=== PATIENT | female | born 1945 | race Caucasian/White ===

== ENCOUNTER 2021-09-07 09:41 | Outpatient (CLI) | payer MEDICARE, SELFPAY ==
--- NOTE | 2021-09-07 09:48 | CDU_ITS ---
Reason For Study: CAROTID STENOSIS Rt. Velocities/BP Lt. Velocities/BP Prox CCA 108.6/17.3 cm/sec. Prox CCA 82.2/13.4 cm/sec. Mid CCA 131.3/28.2 cm/sec. Mid CCA 90.6/17.5 cm/sec. Dist CCA 152.8/43.1 cm/sec. Dist CCA 86.9/12.1 cm/sec. Prox ICA 263.9/60.0 cm/sec. Prox ICA 343.6/22.0 cm/sec. Mid ICA 77.1/16.6 cm/sec. Mid ICA 179.7/15.1 cm/sec. Dist ICA 56.3/10.0 cm/sec. Dist ICA 53.9/10.9 cm/sec. Rt. ICA/CCA = 263.9/131.3=2.0. Lt. ICA/CCA = 343.6/90.6=3.8. Prox ECA 161.5/16.8 cm/sec. Prox ECA 154.4/6.6 cm/sec. Rt. Vert. 58.2/12.8 cm/sec. Lt. Vert. 192.6/34.3 cm/sec. Right Extracranial There is heterogeneous, irregular atherosclerotic plaque noted in the right common carotid artery. There is heterogeneous, irregular atherosclerotic plaque noted in the right internal carotid artery. The atherosclerotic plaque causes acoustic shadowing. There is heterogeneous, irregular atherosclerotic plaque noted in the right external carotid artery. Antegrade flow is noted in the right vertebral artery. Left Extracranial There is heterogeneous, irregular atherosclerotic plaque noted in the left common carotid artery. There is heterogeneous, smooth atherosclerotic plaque noted in the left internal carotid artery. The atherosclerotic plaque causes acoustic shadowing. There is heterogeneous, smooth atherosclerotic plaque noted in the left external carotid artery. Antegrade flow is noted in the left vertebral artery. Procedure Carotid Duplex 97130. This is a Carotid Duplex examination using B-mode, color flow and specral Doppler. The study was technically difficult. Exam performed in department. VL/Carotid Duplex Ultrasound Interpretation Summary Extensive irregular calcific plaque at the proximal right internal carotid norberto ry making visualization very difficult. Greater than 70% stenosis right internal carotid artery Less than 50% stenosis right external carotid artery Irregular calcific plaque at the proximal left internal carotid artery with ext ensive shadowing. Galloping of the left carotid bulb suggesting possible high-grade obstruction o r occlusion. Greater than 70% stenosis left proximal internal carotid artery Less than 50% stenosis left external carotid artery Patent and antegrade right vertebral Greater than 50% stenosis left vertebral Ordering Physician: Alejo Dickey Referring Physician: Luis Carroll Performed By: Sandra Samayoa, TIN, RVT
== END 2021-09-07 23:59 | disposition home or self-care (01) ==
PROVIDERS: PCP Nurse Practitioner Family; Referring Provider Surgery; Visit Provider Surgery
DX: I77.9 Disorder of arteries and arterioles, unspecified (principal); I65.23 Occlusion and stenosis of bilateral carotid arteries
CPT/HCPCS: 93880

== ENCOUNTER 2021-09-09 14:26 | Outpatient (CLI) | payer MEDICARE, SELFPAY ==
[2021-09-09 14:44] LABS: Hematocrit 32.8 % (37-47); Mean Corp Hgb Conc 33.5 g/dL (32-36); Mean Corpuscular Hgb 30.7 pg (27.0-32.0); Mean Corpuscular Volume 91.6 fL (81-99); Mean Platelet Vol. 11.8 fl (6.2-12.0); Platelet Count 231 K/mm3 (150-450); RBC Distribution Width CV 14.6 % (11.6-14.6); RBC Distribution Width SD 49.4 fl (35.1-43.9); Red Blood Count 3.58 M/mm3 (4.2-5.4)
[2021-09-09 15:05] LABS: Anion Gap 7 (5-15); BUN 21 mg/dL (7-18); Calcium,Total 10.1 mg/dL (8.5-10.1); Chloride 105 mmol/L (98-107); Creatinine, Serum 1.05 mg/dL (0.55-1.02); EST Glomerular Filtration Rate 54 mL/min (>60); Est Glom Filt Rate - Afr Amer 66 mL/min (>60); Glucose 144 mg/dL (74-106); Potassium 3.7 mmol/L (3.5-5.1); Sodium Level 139 mmol/L (136-145)
== END 2021-09-09 23:59 | disposition home or self-care (01) ==
PROVIDERS: PCP Nurse Practitioner Family; Referring Provider Surgery; Visit Provider Surgery
DX: Z01.818 Encounter for other preprocedural examination (principal)
CPT/HCPCS: 36415; 80048; 85027

== ENCOUNTER 2021-09-10 15:27 | Observation (INO) | payer MEDICARE, SELFPAY ==
[2021-08-28 08:09] VITALS: BMI 28.1
--- NOTE | 2021-09-07 09:49 | EKG12_ITS ---
Test Reason : PRE OP Blood Pressure : / mmHG Vent. Rate : 075 BPM Atrial Rate : 075 BPM P-R Int : 158 ms QRS Dur : 078 ms QT Int : 388 ms P-R-T Axes : 074 -20 090 degrees QTc Int : 433 ms Sinus rhythm with marked sinus arrhythmia Septal infarct , age undetermined Abnormal ECG Confirmed by MARCOS HYDE, ASHKAN ([id number]), editor dictionary OLAF LOGAN ([id number]) on 09/08/2021 11:16:23 AM Referred By: Alejo Dickey Confirmed By:ASHKAN RODRÍGUEZ MD
--- NOTE | 2021-09-10 08:00 | HP.PCM_ITS ---
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 Is patient in pain?: No Allergies Penicillins Allergy (Verified 09/01/21 13:53) Rash Medications Lantus Solostar U-100 Insulin 30 units SUBCUT BID 09/15/13 [History Confirmed 09/01/21] Omeprazole [Prilosec] 80 mg PO DAILY 09/15/13 [History Confirmed 09/01/21] atorvastatin 80 mg PO QHS 09/15/13 [History Confirmed 09/01/21] lisinopril 40 mg PO DAILY 09/15/13 [History Confirmed 09/01/21] aspirin 81 mg PO DAILY@0800 05/17/14 [History Confirmed 09/01/21] fenofibrate nanocrystallized [Triglide] 160 mg PO DAILY 11/24/17 [History Confirmed 09/01/21] insulin lispro [Humalog KwikPen Insulin] 50 unit SQ TID 11/24/17 [History Confirmed 09/01/21] pregabalin 300 mg PO QHS 08/07/19 [History Confirmed 09/01/21] ondansetron 4 mg PO Q8H PRN PRN #10 tab 08/20/19 [Rx Confirmed 09/01/21] albuterol sulfate 1 inh INHALATION Q6H PRN 04/23/21 [History Confirmed 09/01/21] terazosin 2 mg PO QHS 04/23/21 [History Confirmed 09/01/21] [facility] Medical History (Updated 09/01/21 @ 15:47 by Willow MOHR, PA-C) Atypical chest pain Chronic kidney disease Diabetes Diabetic neuropathy Dietary restriction DRUG SEEKING BEHAVIOR / MALINGERING Gallbladder sludge Gastric reflux High cholesterol History of renal disease Hypertension Injury of back Insulin dependent diabetes mellitus Knee pain Laceration without foreign body, right lower leg, initial encounter Leg cramps Pancreatitis Port-A-Cath in place Problem with dialysis access Smoker Suspected COPD Tobacco use Wears glasses Surgical History History of appendectomy History of cardiac catheterization History of cholecystectomy Family History Grandmother Asthma Mother Breast cancer Hypertension Hypercholesterolemia CVA (cerebral vascular accident) Father Colon cancer Hypertension Hypercholesterolemia Uncle Diabetes Grandfather Heart disease Son Seizures Social History Smoking Status: Current every day smoker tobacco type: cigarettes alcohol intake: never HPI HPI HPI: SRINI JALLOH, is a 52 M who presents to the office today for problem with dialysis access. Patient had right chest catheters placed at [facility] in the summer of last year. He now has a right forearm radiocephalic arteriovenous hemodialysis fistula created on 04/29/21. He has been utilizing the fistula as of July of 2021. Patient states on Tuesday he was turning on his left side laying on the couch and he noted a feeling of wet. He looked at his shirt and noted blood at the catheter site and he went to stand up and the catheter fell to the ground. Patient notes very small amount of tenderness. he stated he presented to the ED that day and was evaluated. No antibiotics were needed and patient was told to follow-up at our office. Patient was told to keep it covered until and drainage stopped. Patient states he has not noted any further drainage since Tuesday night. Patient dialyzes via [facility] kidney center. Dialysis center had sent over a notification noting difficulty with cannulation. Patient notes for a few weeks they have had difficulty accessing the second needle site. He states he has been going 4 times per week to take off extra fluid. He stated last night they had difficulty with the second access site. He went back today and they were unable to place the second needle. He has never had a fistulogram. Patient also notes he is scheduled for open heart surgery on September 14 at [facility]. He stated he has multiple blockages. he states they were not able to complete a heart cath. ROS General General: Yes weight change and fatigue; No appetite, colon cancer, breast cancer or weakness HEENT HEENT: No difficulty swallowing, eye injury, eye surgery, swollen glands or hoarseness Endo Endocrine: Yes diabetes mellitus; No thyroid disease, thyroid cancer, Hair loss, heat intolerance or cold intolerance Skin Skin: No rash or changing moles Breast Breast: No left breast lump, right breast lump, nipple discharge, breast pain, abnormal mammogram, abnormal US or breast enlargement Musc Musculoskeletal: Yes back problems; No arthritis, rheumatoid arthritis, gout or joint pain Cardio Cardiovascular: Yes high blood pressure and heart attack; No murmur, pacemaker, heart disease, atrial fibrillation, heart stent, palpitations, shortness of breat with exertion or chest pain Psych Psychiatric: Yes depression and anxiety; No hearing voices Resp Respiratory: No shortness of breath, No sleep apnea, Yes cough, Yes COPD, No asthma, No emphysema and No wheezing Gastro Gastrointestinal: Yes abdominal pain, Yes nausea or vomiting, Yes diarrhea, Yes constipation, No blood in stool, Yes acid reflux, No hemorrhoids, No ulcers, No gallbladder problem and Yes black,tarry stools Additional Details: History pancreatitis Topher Hematologic: No blood thinners, No blood disorders, No bleeding, Yes anemia and No blood clots Neuro Neurologic: No system reviewed and no additional complaints, except as documented, No as per HPI, No abnormal gait, No abnormal hearing, No abnormal movements, No abnormal speech, No behavioral changes, No burning sensations, No confusion, No convulsions, No disequilibrium, No dizziness, No localized weakness, No frequent falls, No headache(s), No lack of coordination, No loss of vision, No memory loss, No numbness, No other visual disturbances, No radicular pain, No restless legs, No sensory deficit, No syncope, No tingling, No tremor(s), No weakness and No other Exam Const General: cooperative, healthy appearing, comfortable and no acute distress [facility] Head: normal to inspection Eyes General: appearance normal, both eyes and all related structures Neck Neck: normal visual inspection Neck mass: No Chest Other: Right chest- previous catheter site c/d/i. Very small scab noted. No erythema or infection noted. Opening appears completely healed. No drainage noted. Resp Effort & Inspection: normal respiratory effort Auscultation: clear to auscultation bilaterally Cardio Rate: regular rate Rhythm: regular rhythm GI Inspection: normal to inspection and obesity Palpation: soft Auscultation: normal bowel sounds Skin General: no rashes or lesions noted Neuro General: no focal motor deficits and CN's II-XI intact bilaterally Extrem Other: Right forearm AV fistula- good pulse, diminished bruit and thrill mid forearm. Psych Appearance: grossly normal Affect: normal affect Assessment and Plan Assessment and Plan (1) Displacement of vascular dialysis catheter, initial encounter: Status: Acute Plan - Willow MOHR PA-C: Previous catheter site appears to be healed very well Patient may shower He will no longer need to keep the area covered (2) Problem with dialysis access: Status: Acute Qualifiers: Encounter type: initial encounter Qualified Code(s): T82.898A - Other specified complication of vascular prosthetic devices, implants and grafts, initial encounter Plan - Willow MOHR PA-C: Dr. Dickey will plan to perform a right forearm fistulogram. Procedure details, risks and benefits have been explained. He may continue his aspirin for the procedure. Patient is limited on time frame due to open heart surgery. We will attempt in every way to accommodate this procedure prior to the patient having open heart surgery. Patient has had the opportunity to ask and have questions answered. Patient verbally understands and agrees with the plan. Coding Level of Care Code Off vis,est,level 3 Diagnoses Displacement of vascular dialysis catheter, initial encounter T82.42XA Problem with dialysis access T82.898A Encounter type: initial encounter 09/01/21 1554<Electronically signed by Willow MOHR PA-C>Date Willow MOHR PA-C I have re-examined the patient. There are no clinical changes since date of exam.
--- NOTE | 2021-09-10 10:16 | OP.PCM_ITS ---
Problems Associated Problem List Diagnoses (1) PAOD (peripheral arterial occlusive disease): Report of Operation Date of Procedure: 09/10/21 Pre-Operative Diagnosis: Critical ischemia left foot. Claudication symptoms right lower extremity Post-Operative Diagnosis: Multi segmental bilateral extremity peripheral arterial occlusive disease Surgery/Procedure Performed:: Abdominal pelvic bilateral lower extremity arteriogram. Right externally X 6 x 40 mm Powerflex balloon angioplasty Left common iliac and left external iliac 6 x 4 Powerflex balloon angioplasty Left common neck and external iliac 7 x 100 ever flex stenting Left proximal common iliac 6 x 2 conquest angioplasty Description of Surgical Findings:: Timeout and informed consent was obtained. 75-year-old female was taken to the special procedures lab placed upon the table. Throughout the procedure in aliquots she received a total of 3 mg of Versed is intravenous sedation. Bilateral groins were sterilely prepped and draped. Ultrasound was used to identify the right common femoral artery. It was noted to be is small in caliber and very deeply placed secondary to by patient body habitus. Under ultrasound guidance 2% lidocaine was instilled as a local anesthetic and a total of 10 cc was used. Then a micropuncture needle was inserted into the right common femoral artery followed by a cylinder wire and m icropuncture sheath 035 J-wire and a 5 [place] short sheath dilator. Then using a 035 angled Glidewire placed a 5 [place] universal flush catheter into the abdominal aorta. It is of note that the abdominal aorta diffusely small in caliber as I had some effort and required to get the flush catheter to open. Then using Visipaque contrast the rate of 15 cc a second for 10 cc an AP aortogram was obtained. This demonstrated significant calcific disease of the proximal left common iliac with more diffuse disease of the distal left common iliac and of the left mid to distal external iliac. There was also clinically significant disease of the right external iliac. So under ultrasound guidance gained access to the left common femoral artery. This was quite challenging due to the deep placement of the vessel and the diminutive size because of the decreased flow. Used 2% lidocaine again 10 cc was used micropuncture needle micropuncture wire micropuncture sheath an 035 J-wire then placed a 7 [place] sheath on the left. The 6 [place] sheath on the right was exchanged out for a 7 [place] sheath as well. The patient received 7000 units of heparin weightbase. Subsequently based upon ACT measurements later in the procedure she received additional 500 units of heparin. I was able use a 4 [place] glide cath and a Glidewire to get past the quite clinically significant occlusive focal plaque at the proximal left common iliac. I then performed balloon angioplasty of the left common iliac and external iliac with 3 different positionings of a 6 x 40 mm Powerflex balloon. Move the balloon over to the right and balloon angioplasty was performed of the right mid external iliac artery. Subsequent views on the left demonstrated incomplete resolution. Because of the length of disease I elected to place a ever flex stent covering all areas. A 7 x 100 mm ever flex stent was placed on the left and carefully the position to be right at the orifice of the left common iliac covering the disease there but not involving the right common iliac. I felt that I got excellent positioning. Then subsequently reballooned the stented area on the left with the 6 x 4 Powerflex. There is incomplete improvement of the proximal left common axial I placed a 6 x 2 conquest balloon inflated that to 22 vi of pressure. At that point the patient had mild discomfort I elected not to increase the pressure. I then through the flush catheter obtained abdominal views pelvic views bilateral lower extremity runoff views. Throughout the procedure total of 60 cc of contrast was used. Minx devices were deployed in both groins. The right groin was successful. The left groin developed a hematoma that required manual compression. At the completion the patient then received 10 mg of protamine to assist. Both feet appear to be viable although she demonstrated ongoing signs of compromised blood flow secondary to her multisegmental disease. Images demonstrate diffuse calcific narrowing of the abdominal aorta. Moderate proximal bilateral renal artery stenosis. Severe exophytic plaque involving greater 90% stenosis of the proximal left common iliac. 70% stenosis left external iliac artery. 70% stenosis right external iliac artery. Patent bilateral profundofemoral's. Left superficial femoral was patent down to the suprageniculate popliteal where it occludes. The left posterior tibial and peroneal diminutive in size but appear patent down to the distal third of the left leg. The right superficial femoral artery occludes in the proximal lower extremity. The right anterior tibial peers to be the main vessel still refilling of the right lower extremity. Subsequent to the angioplasty and stenting there appears to be improvement in the right external iliac artery and distinct improvement in the left common iliac and external iliac arteries although there is still residual 20 to 30% compression of the stent due to the very calcific plaque in the proximal left common iliac artery. Alejo Dickey M.D., F.A.C.S. Surgeon: Alejo Dickey Type of Anesthesia: IV Sedation and Local
--- NOTE | 2021-09-10 14:48 | ADUL_ITS ---
Reason For Study: R/O Pseudo Left Velocities LABORER ADJUSTABLE STEEL JOIST measures .89 x .83 cm. LABORER ADJUSTABLE STEEL JOIST 150.7 cm/s. CFV is compressible with normal venous flow patterns. No pseudoaneurysm or A-V fistula identified. VL/US Art Duplex Unilat Lower Ext Interpretation Summary Left common femoral artery is visualized and measures approximately 0.89 x 0.83 cm in diameter. Flow is noted within. There is no visualized active bleeding or pseudoaneurysm or fi stula. Left common femoral vein is patent and compressible. Ordering Physician: Alejo Dickey Performed By: Enrico Bean RVT
[2021-09-10 15:27] LABS: Absolute Lymphocyte Count 0.75 X10^3/uL (0.83-4.51); Absolute Neutrophil Count 8.5 X10^3/uL (2.0-7.7); Basophil# 0.02 X10^3/uL; Basophil% 0.2 % (0-1); Hemoglobin 9.2 g/dL (12.0-15.0); Lymphocyte # 0.75 X10^3/ul (0.83-4.51); Lymphocyte % 7.3 % (19-41); Mean Corp Hgb Conc 32.9 g/dL (32-36); Mean Corpuscular Hgb 31.1 pg (27.0-32.0); Mean Corpuscular Volume 94.6 fL (81-99); Monocyte# 0.79 X10^3/uL; Monocyte% 7.7 % (0-10); NRBC Flagged by Analyzer 0 % (0-5); Neutrophil # 8.47 X10^3/uL (2.7-7.7); Platelet Count 211 K/mm3 (150-450); RBC Distribution Width CV 14.7 % (11.6-14.6); RBC Distribution Width SD 50.9 fl (35.1-43.9); Red Blood Count 2.96 M/mm3 (4.2-5.4); White Blood Count 10.2 K/mm3 (4.4-11.0)
--- NOTE | 2021-09-10 15:37 | PN.SURG_ITS ---
Subjective Subjective Called to see the patient because without any pain she became nauseated and was noted to be hypotensive briefly with a systolic pressure of 70. She received initiation of 500 cc of crystalloid. Blood pressure responded. Etiology to the hypotension not clarified. The patient complained of mild nausea which also abated. Objective Data Objective Data Vital Signs: Weight: 154 lb Body Mass Index (BMI) 28.1 Lab / Micro Data Result Diagrams: 09/10/21 15:15 09/10/21 15:15 Labs: Laboratory Results - last 24 hr 09/10/21 15:15: WBC 10.2, RBC 2.96 L, Hgb 9.2 L, Hct 28.0 L, MCV 94.6, MCH 31.1, MCHC 32.9, RDW Std Deviation 50.9 H, RDW Coeff of Anisa 14.7 H, Plt Count 211, MPV 12.0, Immature Gran % (Auto) 0.800, Neut % (Auto) 83.0 H, Lymph % (Auto) 7.3 L, Guthrie % (Auto) 7.7, Eos % (Auto) 1.0, Baso % (Auto) 0.2, Absolute Neuts (auto) 8.5 H, Absolute Lymphs (auto) 0.75 L, Nucleated RBC % 0 Radiography Diagnostic Testing: Radiology Impression Duplex Scan Lower Extremity Artery 09/10/21 14:48 Interpretation Summary Left common femoral artery is visualized and measures approximately 0.89 x 0.83 cm in diameter. Flow is noted within. There is no visualized active bleeding or pseudoaneurysm or fistula. Left common femoral vein is patent and compressible. Ordering Physician: Alejo Dickey Performed By: Enrico Bean RVT Physical Exam Narrative: Post procedure the patient developed a left groin hematoma which had to be held. She had her heparin reversed with a low dose of protamine. She appeared to be stable. On repeat exam there appears to be significant mount of swelling in the left groin area and direct pressure was held. Assessment & Plan Assessment/Plan (1) Vasovagal episode: PLAN: Etiology of the patient's nausea and hypotensive not clear. She had a bowel movement but not completely in line with her hypotension and nausea. She had absolutely no pain. Pressure again was held in the left groin at the site of her previous postprocedural hematoma. She had not had any renewed pain in that area. Duplex imaging of the left groin was obtained showing no active bleeding. The patient lying supine had recovery of her blood pressure. Crystalloids were being infused. She was saying that her nausea had abated. She denied any chest pain. In further discussion with her she had had a myocardial infarction 7 years prior. She states that at that time she had no chest pain either but that she felt unwell and had sweats. She is not complaining of any distress at this time. I plan admission. Will obtain twelve-lead EKG and laboratory including a BMP and CBC and baseline troponin.. As noted the duplex is already been obtained showing no bleeding from the left groin. I will consult the hospitalist for add itional medical assistance. She appears to be stable from a surgical standpoint at this time Alejo Dickey M.D., F.A.C.S.
[2021-09-10 15:43] LABS: Anion Gap 4 (5-15); BUN 20 mg/dL (7-18); BUN/Creat Ratio 20.4 RATIO (10-20); Calcium,Total 8.7 mg/dL (8.5-10.1); Chloride 110 mmol/L (98-107); Creatinine, Serum 0.98 mg/dL (0.55-1.02); EST Glomerular Filtration Rate 59 mL/min (>60); Est Glom Filt Rate - Afr Amer 71 mL/min (>60); Estimated Creatinine Clearance 39.23 ml/min; Glucose 144 mg/dL (74-106); Potassium 3.8 mmol/L (3.5-5.1); Sodium Level 141 mmol/L (136-145); Troponin-I HS 13 pg/mL (3.0-54.0)
[2021-09-10 17:30] VITALS: BP 112/75; PULSE 89; RESP 18; TEMP 36.1; O2SAT 100; BMI 28.1
--- NOTE | 2021-09-10 18:18 | PCM.CONS.GEN ---
Assessment & Plan Assessment/Plan (1) Vasovagal episode: (2) PAOD (peripheral arterial occlusive disease): (3) Anemia: QUALIFIERS: Anemia type: other cause PLAN: 1. Vasovagal syncope Likely multifactorial due to her recent surgery possibly anesthesia and suspect some acute blood loss anemia. Patient's hemoglobin has gone from 11-9.2. Certainly no indication to transfuse at this time may have culminated in her episode today. Additionally patient does also have a carotid stenosis which is another contributing factor. Currently hemodynamically stable. No additional work-up at this time. 2. Anemia Hemoglobin is gone from 11-9.2 Patient does have some ecchymosis Agree with continue to monitor her hemoglobin Transfuse unless hemoglobin drops less than 7 3. Peripheral arterial disease Status post angioplasty today 4. Carotid stenosis Patient will follow up with tertiary facility as outpatient 5. COPD and asthma Continue with bronchodilators and Advair Thank you for the consult. The hospital service will follow along during this patient's hospitalization. HPI Consult Data Date of Consult: 09/10/21 HPI Narrative HPI Narrative: EMILY PATEL, is a 75 F who presents for an angiogram today. Patient was having claudication to her right lower extremity. She underwent a arteriogram abdominal pelvic area and had a balloon angioplasty bilateral lower extremities. After the procedure, patient was nauseated and was hypotensive with a systolic blood pressure in the 70s. Did receive 500 cc of fluids. She was then transferred to the floor for further monitoring in the hospital service was consulted. Currently, the patient feels well and denies any active complaints. [facility], [facility] Medical History Asthma COPD (chronic obstructive pulmonary disease) Hemorrhoids History of heart attack History of stroke Hypertension Rheumatoid arthritis Home Medications acetaminophen 325 mg capsule 325 mg PO Q6H PRN cap 08/03/21 [History Last Taken Unknown] albuterol sulfate 90 mcg/actuation aerosol inhaler 2 puff INHALATION Q4H PRN g 08/03/21 [History Last Taken Unknown] ascorbic acid (vitamin C) 500 mg capsule 1,000 mg PO DAILY cap 08/03/21 [History Last Taken Unknown] aspirin 81 mg tablet,delayed release 81 mg PO DAILY 08/03/21 [History Last Taken 09/10/21] cholecalciferol (vitamin D3) 125 mcg (5,000 unit) capsule 125 mcg PO DAILY 08/03/21 [History Last Taken Unknown] fluticasone 250 mcg-salmeterol 50 mcg/dose blistr powdr for inhalation 1 inh INHALATION Q12H 08/03/21 [History Last Taken Unknown] hydrochlorothiazide 12.5 mg tablet 12.5 mg PO DAILY 08/03/21 [History Last Taken Unknown] lisinopril 10 mg tablet 10 mg PO DAILY 08/03/21 [History Last Taken 09/10/21] metoprolol succinate 25 mg tablet,extended release 24 hr 12.5 mg PO DAILY tab 08/03/21 [History Last Taken 09/10/21] pantoprazole 40 mg tablet,delayed release 40 mg PO DAILY 08/03/21 [History Last Taken Unknown] Allergy/AdvReac Type Severity Reaction Status Date / Time hydromorphone [From Dilaudid] AdvReac unknown Verified 09/09/21 13:34 morphine AdvReac unknown Verified 09/09/21 13:34 Family History Father Hypertension High cholesterol Colon cancer Social History Smoking Status: Former smoker alcohol intake: never substance use type: does not use ROS ROS Narrative All review of systems were negative except as mentioned above in the history of present illness and the other review of systems. Physical Exam Resp normal respiratory effort, no retractions, no use of accessory muscles and clear to auscultation bilaterally Cardio regular rate, regular rhythm, S1 normal heart sound and S2 normal heart sound GI normal to inspection, nondistended, normoactive bowel sounds, soft to palpation, non-tender and non-distended Extremity normal to inspection Lab / Micro Data Attestation: I reviewed the patient's lab results. Result Diagrams: 09/10/21 15:15 09/10/21 15:15 Labs: Laboratory Results - last 24 hr 09/10/21 15:15: WBC 10.2, RBC 2.96 L, Hgb 9.2 L, Hct 28.0 L, MCV 94.6, MCH 31.1, MCHC 32.9, RDW Std Deviation 50.9 H, RDW Coeff of Anisa 14.7 H, Plt Count 211, MPV 12.0, Immature Gran % (Auto) 0.800, Neut % (Auto) 83.0 H, Lymph % (Auto) 7.3 L, [place] % (Auto) 7.7, Eos % (Auto) 1.0, Baso % (Auto) 0.2, Absolute Neuts (auto) 8.5 H, Absolute Lymphs (auto) 0.75 L, Nucleated RBC % 0 09/10/21 15:15: Sodium 141, Potassium 3.8, Chloride 110 H, Carbon Dioxide 27.0, Anion Gap 4 L, BUN 20 H, Creatinine 0.98, Estim Creat Clear Calc 39.23, Est GFR (MDRD) Af Amer 71, Est GFR (MDRD) Non-Af 59 L, BUN/Creatinine Ratio 20.4 H, Glucose 144 H, Calcium 8.7, Troponin I High Sens 13 Radiology Impression Duplex Scan Lower Extremity Artery 09/10/21 14:48 Interpretation Summary Left common femoral artery is visualized and measures approximately 0.89 x 0.83 cm in diameter. Flow is noted within. There is no visualized active bleeding or pseudoaneurysm or fistula. Left common femoral vein is patent and compressible. Ordering Physician: Alejo Dickey Performed By: Enrico Bean RVT Charges/Coding Visit Charges Office Visits / Consults: 34989 OP Consult L3
[2021-09-10 20:00] VITALS: BP 112/59; PULSE 89; RESP 16; TEMP 36.6; O2SAT 99
[2021-09-10] MEDS: Lactated Ringers 1,000 ML 70 ML IV (20:39)
[2021-09-10] MEDS: Pantoprazole Sodium 40 MG Tablet PO (20:40)
[2021-09-11] VITALS: BP 120/60; PULSE 99; RESP 16; TEMP 36.6; O2SAT 98
[2021-09-11] MEDS: Acetaminophen 325 MG Tablet PO ×2 (00:11→09:22)
[2021-09-11 03:40] VITALS: PULSE 88
[2021-09-11 04:00] VITALS: BP 122/64; PULSE 89; RESP 16; TEMP 36.7; O2SAT 98
--- NOTE | 2021-09-11 06:02 | PN.SURG_ITS ---
Subjective Subjective Patient without complaint.She believes that her feet have increased warmth. She did not experience drawing of the toes overnight. She denies nausea. Denies chest pain. Objective Data Objective Data Vital Signs: Vital Signs Temp Pulse Resp BP Pulse Ox 98.1 F 89 16 122/64 H 98 09/11/21 04:00 09/11/21 04:00 09/11/21 04:00 09/11/21 04:00 09/11/21 04:00 Oxygen Delivery Method Room Air Weight: 153 lb 15.886 oz Body Mass Index (BMI) 28.1 Intake & Output: Intake and Output for Last 24 Hours 09/09/21 09/10/21 09/11/21 23:59 23:59 23:59 Intake Total 120 / 120 Output Total 250 / 250 Balance -130 / -130 Lab / Micro Data Result Diagrams: 09/10/21 15:15 09/10/21 15:15 Labs: Laboratory Results - last 24 hr 09/10/21 15:15: WBC 10.2, RBC 2.96 L, Hgb 9.2 L, Hct 28.0 L, MCV 94.6, MCH 31.1, MCHC 32.9, RDW Std Deviation 50.9 H, RDW Coeff of Anisa 14.7 H, Plt Count 211, MPV 12.0, Immature Gran % (Auto) 0.800, Neut % (Auto) 83.0 H, Lymph % (Auto) 7.3 L, [place] % (Auto) 7.7, Eos % (Auto) 1.0, Baso % (Auto) 0.2, Absolute Neuts (auto) 8.5 H, Absolute Lymphs (auto) 0.75 L, Nucleated RBC % 0 09/10/21 15:15: Sodium 141, Potassium 3.8, Chloride 110 H, Carbon Dioxide 27.0, Anion Gap 4 L, BUN 20 H, Creatinine 0.98, Estim Creat Clear Calc 39.23, Est GFR (MDRD) Af Amer 71, Est GFR (MDRD) Non-Af 59 L, BUN/Creatinine Ratio 20.4 H, Glucose 144 H, Calcium 8.7, Troponin I High Sens 13 Radiography Diagnostic Testing: Radiology Impression Duplex Scan Lower Extremity Artery 09/10/21 14:48 Interpretation Summary Left common femoral artery is visualized and measures approximately 0.89 x 0.83 cm in diameter. Flow is noted within. There is no visualized active bleeding or pseudoaneurysm or fistula. Left common femoral vein is patent and compressible. Ordering Physician: Alejo Dickey Performed By: Enrico Bean, RVT Physical Exam Const no apparent distress Resp normal respiratory effort Narrative: Right groin more supple nontender. Left groin significant amount of ecchymosis. Tenderness to deep palpation, softer than earlier yesterday Bilateral feet are nicely warm pink. Assessment & Plan Assessment/Plan (1) Vasovagal episode: PLAN: Vasovagal episode likely multifactorial. After episode patient stabilized and is remained unremarkable throughout the additional observation. Left groin ecchymosis and tenderness but no evidence for active bleeding. Laboratories pending then anticipate discharge I appreciate very much the assistance of hospitalist service. Alejo Dickey M.D., F.A.C.S.
--- NOTE | 2021-09-11 06:04 | PCM.DC ---
Discharge Instructions Diet Discharge Diet: Light diet - advance as tolerated (if you have questions about your diet instructions, please talk to you doctor.) Activity Discharge Activity: May Not Drive (for 3-5 days or while taking narcotic pain medicine.) May shower in (days): 1 Lifting Restrictions: 10 pounds Dressing / Incision Call your doctor if your incision/area has: Continuous Slow Oozing, Sudden Increased Bleeding, Increased Pain/ Swelling, Increased Redness and Foul Smelling Discharge Call your doctor if you observe: Fever of 101 or Higher Suture Line Care: Avoid Pulling/Pushing and Avoid Pinching/Bending Follow Up Care Please Follow Up With: Alejo Dickey MD When: Please call [phone] for an appointment in 10 to 14 days. Test Results: Please keep bilateral groin incisions clean and dry today September 11, 2021. You may shower tomorrow but no tub baths or hot tubs until after your office appointment. Resume all of your routine medications and very importantly resume your aspirin therapy. Please stay in touch with our office regarding your tertiary carotid referral Alejo Dickey M.D., F.A.C.S. Discharge Plan Admission Admit Date/Time: 09/10/21 17:38 Attending Provider: Alejo Dickey Primary Care Provider: Luis Carroll NP Consulting Providers: Olivia Michelle ; Cesia Heck ; Alli Mitchell ; David Jacome ; Agustín Rodgers ; Bimal Gallo ; Jovon Catherine ; Zachary Parmar ; Jonnathan Burris ; Waldemar Minor ; Ruthie Wilde ; Iron Jimenez ; Elyse Cabrera ; Albert Sparks ; Wilfred Dickerson ; Roby Mcguire ; Kamari Paez ; Lucretia Wray ; Kourtney Modi NP ; Azael Solomon ; Vielka Schumacher Discharge Orders/Prescriptions Prescriptions: No Action metoprolol succinate 25 mg tablet extended release 24 hr 12.5 mg PO DAILY RF: 0 hydrochlorothiazide 12.5 mg tablet 12.5 mg PO DAILY RF: 0 lisinopril 10 mg tablet 10 mg PO DAILY RF: 0 aspirin [Adult Aspirin Regimen] 81 mg tablet,delayed release (DR/EC) 81 mg PO DAILY RF: 0 albuterol sulfate 90 mcg/actuation HFA aerosol inhaler 2 puff inhalation Q4H PRN (Reason: Wheezing) RF: 0 fluticasone propion-salmeterol [Advair Diskus] 250-50 mcg/dose blister with device 1 inh inhalation Q12H RF: 0 pantoprazole 40 mg tablet,delayed release (DR/EC) 40 mg PO DAILY RF: 0 acetaminophen [Tylenol] 325 mg capsule 325 mg PO Q6H PRN (Reason: Pain) RF: 0 ascorbic acid (vitamin C) 500 mg capsule 1,000 mg PO DAILY RF: 0 cholecalciferol (vitamin D3) 125 mcg (5,000 unit) capsule 125 mcg PO DAILY RF: 0
[2021-09-11 06:32] LABS: Absolute Lymphocyte Count 1.15 X10^3/uL (0.83-4.51); Absolute Neutrophil Count 5.7 X10^3/uL (2.0-7.7); Basophil# 0.01 X10^3/uL; Basophil% 0.1 % (0-1); Eosinophil# 0.14 X10^3/uL; Eosinophils% 1.8 % (0-5); Hematocrit 25.2 % (37-47); Hemoglobin 8.3 g/dL (12.0-15.0); Lymphocyte # 1.15 X10^3/ul (0.83-4.51); Mean Corp Hgb Conc 32.9 g/dL (32-36); Mean Corpuscular Hgb 30.6 pg (27.0-32.0); Mean Platelet Vol. 12.3 fl (6.2-12.0); Monocyte# 0.64 X10^3/uL; Monocyte% 8.3 % (0-10); NRBC Flagged by Analyzer 0 % (0-5); Neutrophil # 5.67 X10^3/uL (2.7-7.7); Platelet Count 196 K/mm3 (150-450); RBC Distribution Width SD 50.3 fl (35.1-43.9); Red Blood Count 2.71 M/mm3 (4.2-5.4); White Blood Count 7.7 K/mm3 (4.4-11.0)
[2021-09-11 06:57] LABS: Anion Gap 4 (5-15); BUN 17 mg/dL (7-18); BUN/Creat Ratio 23.2 RATIO (10-20); Calcium,Total 8.7 mg/dL (8.5-10.1); Chloride 110 mmol/L (98-107); Creatinine, Serum 0.73 mg/dL (0.55-1.02); EST Glomerular Filtration Rate 82 mL/min (>60); Est Glom Filt Rate - Afr Amer 99 mL/min (>60); Estimated Creatinine Clearance 38.44 ml/min; Glucose 122 mg/dL (74-106); Potassium 3.7 mmol/L (3.5-5.1); Sodium Level 141 mmol/L (136-145)
[2021-09-11 07:06] VITALS: PULSE 93; RESP 18
[2021-09-11] MEDS: Albuterol 2.5 MG/3 ML VIAL.NEB. INHALATION (07:08)
[2021-09-11] MEDS: Budesonide Respules 0.5 MG/2 ML AMPUL.NEB. INHALATION (07:08)
[2021-09-11 07:27] VITALS: PULSE 109
[2021-09-11 08:20] VITALS: BP 132/62; PULSE 90; RESP 16; TEMP 36.6; O2SAT 98
[2021-09-11] MEDS: Pantoprazole Sodium 40 MG Tablet PO (09:15)
[2021-09-11] MEDS: Aspirin E.C. 81 MG Tablet PO (09:15)
[2021-09-11] MEDS: Lactated Ringers 1,000 ML 70 ML IV (09:19)
== END 2021-09-11 07:38 | disposition home or self-care (01) ==
LOC: PCU 17:45
PROVIDERS: Admitting Provider Surgery; PCP Nurse Practitioner Family; Referring Provider Surgery; Visit Provider Internal Medicine
DX: R55 Syncope and collapse (principal); T82.42XA Displacement of vascular dialysis catheter, initial encounter; T82.898A Other specified complication of vascular prosthetic devices, implants and grafts, initial encounter; E11.51 Type 2 diabetes mellitus with diabetic peripheral angiopathy without gangrene; J44.9 Chronic obstructive pulmonary disease, unspecified; E11.22 Type 2 diabetes mellitus with diabetic chronic kidney disease; E11.40 Type 2 diabetes mellitus with diabetic neuropathy, unspecified; I12.9 Hypertensive chronic kidney disease with stage 1 through stage 4 chronic kidney disease, or unspecified chronic kidney disease; E78.00 Pure hypercholesterolemia, unspecified; D64.9 Anemia, unspecified; I95.9 Hypotension, unspecified; N18.9 Chronic kidney disease, unspecified; K21.9 Gastro-esophageal reflux disease without esophagitis; I97.638 Postprocedural hematoma of a circulatory system organ or structure following other circulatory system procedure; Z79.4 Long term (current) use of insulin; Z79.82 Long term (current) use of aspirin; Z79.899 Other long term (current) drug therapy; Z79.51 Long term (current) use of inhaled steroids; Y84.9 Medical procedure, unspecified as the cause of abnormal reaction of the patient, or of later complication, without mention of misadventure at the time of the procedure; Z87.891 Personal history of nicotine dependence; I25.2 Old myocardial infarction; M06.9 Rheumatoid arthritis, unspecified
CPT/HCPCS: 36200; 36245; 36246; 36415; 37220; 37221; 37223; 75625; 75716; 76937; 80048; 84484; 85025; 93005; 93926; 94640; 99152; 99153; 99218; C1760; J7030; J7040; J7120; Q9967; C1725; C1769; C1876; G0378

== ENCOUNTER 2021-09-25 13:11 | Outpatient (CLI) | payer MEDICARE, SELFPAY ==
[2021-09-25 13:30] LABS: Absolute Lymphocyte Count 1.31 X10^3/uL (0.83-4.51); Absolute Neutrophil Count 5.6 X10^3/uL (2.0-7.7); Basophil# 0.02 X10^3/uL; Basophil% 0.3 % (0-1); Eosinophil# 0.32 X10^3/uL; Hematocrit 30.2 % (37-47); Hemoglobin 9.9 g/dL (12.0-15.0); Lymphocyte # 1.31 X10^3/ul (0.83-4.51); Lymphocyte % 16.5 % (19-41); Mean Corp Hgb Conc 32.8 g/dL (32-36); Mean Corpuscular Volume 94.7 fL (81-99); Mean Platelet Vol. 11.8 fl (6.2-12.0); Monocyte# 0.64 X10^3/uL; NRBC Flagged by Analyzer 0 % (0-5); Neutrophil # 5.63 X10^3/uL (2.7-7.7); Neutrophil % 70.7 % (47-70); Platelet Count 303 K/mm3 (150-450); RBC Distribution Width CV 15.7 % (11.6-14.6); RBC Distribution Width SD 54.1 fl (35.1-43.9); Red Blood Count 3.19 M/mm3 (4.2-5.4)
== END 2021-09-25 23:59 | disposition home or self-care (01) ==
LOC: LAB 13:12
PROVIDERS: PCP Nurse Practitioner Family; Referring Provider Surgery; Visit Provider Surgery
DX: D64.9 Anemia, unspecified (principal)
CPT/HCPCS: 36415; 85025

== ENCOUNTER 2021-10-19 10:42 | Outpatient (CLI) | payer MEDICARE, SELFPAY ==
--- NOTE | 2021-10-19 10:50 | ART_ITS ---
Reason For Study: PVD Procedure A bilateral lower extremity continuous wave Doppler with analog waveform analysis,segmental pressures,and ankle brachial indexes with exercise. Left Segmental Pressures Left brachial= 155mmHg. Left calf = 129mmHg. Left posterior tibial artery = 128mmHg. Left dorsalis pedis artery = 132mmHg. Left digit = 83 mmHg. Low thigh was noncompressible. The left dorsalis pedis waveforms are biphasic. The left posterior tibial artery waveforms are biphasic. Right Segmental Pressures Right brachial= 146mmHg. Right thigh = 139mmHg. Right calf = 110mmHg. Right posterior tibial artery = 112mmHg. Right dorsalis pedis artery = 91mmHg. Right digit = 98 mmHg. The right dorsalis pedis waveforms are monophasic. The right posterior tibial artery waveforms are biphasic. Indices The right ankle brachial index by the dorsalis pedis is .59. The right ankle brachial index by the posterior tibial artery is .72. The right digital-brachial index is .63. The right post exercise ankle brachial index is .37. The left ankle brachial index by the dorsalis pedis is .85. The left ankle brachial index by the posterior tibial artery is .83. The left digital-brachial index is .54. The left post exercise ankle brachial index is .58. VL/Lower Ext Art Exam w/ Exercise Interpretation Summary Moderately severe right lower extremity arterial occlusive disease with a PT an d DP ankle-brachial index of 0.72 and 0.59 respectively. The right posterior tibialis as a biphasic Doppler waveform while the dorsalis pedis is only monophasic suggesting more severe level diseas e to the tibialis anterior. Abnormal exercise index, baseline 0.722 medially after exercise at 0. 37. There is recovery by 5 minutes Abnormal abnormal left lower extremity ankle-brachial PT and DP index of 0.83 a nd 0.85 with biphasic Doppler waveforms consistent with moderately severe arterial occlusive disease. Resting index of 0.85 drops immediately after exercise at 0.58 and there is recovery by 5 minute s. Abnormal bilateral digital brachial indices Ordering Physician: Alejo Dickey Performed By: Enrico Bean RVT
== END 2021-10-19 23:59 | disposition home or self-care (01) ==
PROVIDERS: PCP Nurse Practitioner Family; Referring Provider Surgery; Visit Provider Surgery
DX: I73.9 Peripheral vascular disease, unspecified (principal)
CPT/HCPCS: 93924

== ENCOUNTER → 2022-04-08 | Outpatient (CLI) | payer MEDICARE, SELFPAY ==
--- NOTE | 2022-04-08 09:02 | ART_ITS ---
Reason For Study: PVD Procedure A bilateral lower extremity continuous wave Doppler with analog waveform analysis,segmental pressures,and ankle brachial indexes with exercise. Left Segmental Pressures Left brachial= 152mmHg. Left thigh = 202mmHg. Left calf = 123mmHg. Left posterior tibial artery = 100mmHg. Left dorsalis pedis artery = 108mmHg. Left digit = 78 mmHg. The left dorsalis pedis waveforms are biphasic. The left posterior tibial artery waveforms are biphasic. Right Segmental Pressures Right brachial= 138mmHg. Right thigh = 155mmHg. Right calf = 122mmHg. Right posterior tibial artery = 103mmHg. Right dorsalis pedis artery = 98mmHg. Right digit = 80 mmHg. The right dorsalis pedis waveforms are biphasic. The right posterior tibial artery waveforms are biphasic. Indices The right ankle brachial index by the dorsalis pedis is .64. The right ankle brachial index by the posterior tibial artery is .68. The right digital-brachial index is .53. The right post exercise ankle brachial index is .28. The left ankle brachial index by the dorsalis pedis is .71. The left ankle brachial index by the posterior tibial artery is .66. The left digital-brachial index is .51. The left post exercise ankle brachial index is .24. VL/Lower Ext Art Exam w/ Exercise Interpretation Summary The right posterior tibial and dorsalis pedis ankle-brachial indices at rest ar e 0.68 and 0.64 respectively with biphasic Doppler waveforms suggesting moderately severe arter ial occlusive disease. With exercise the right EDI drops all the way to 0.28 and there is rec overy at 9 minutes Left lower extremity PT and DP ankle-brachial index at rest are 0.66 and 0.71 w ith biphasic Doppler waveforms suggesting moderately severe arterial occlusive disease. With exercis e the EDI drops to 0.24 and there is incomplete recovery by 9 minutes Based upon the change in the resting indices bilateral lower extremity would ybarra ggest femoral- popliteal occlusive disease Ordering Physician: Alejo Dickey Performed By: Enrico Bean RVFadi
== END | disposition home or self-care (01) ==
PROVIDERS: Visit Provider Surgery
DX: I73.9 Peripheral vascular disease, unspecified (principal)
CPT/HCPCS: 93924

== ENCOUNTER → 2022-08-06 | Outpatient (CLI) | payer MEDICARE, SELFPAY ==
[2022-08-06 11:49] LABS: Absolute Lymphocyte Count 1.21 X10^3/uL (0.83-4.51); Absolute Neutrophil Count 7.8 X10^3/uL (2.0-7.7); Basophil# 0.02 X10^3/uL; Basophil% 0.2 % (0-1); Eosinophil# 0.27 X10^3/uL; Eosinophils% 2.7 % (0-5); Hematocrit 36.9 % (37-47); Hemoglobin 11.9 g/dL (12.0-15.0); Lymphocyte # 1.21 X10^3/ul (0.83-4.51); Lymphocyte % 11.9 % (19-41); Mean Corp Hgb Conc 32.2 g/dL (32-36); Mean Corpuscular Hgb 29.7 pg (27.0-32.0); Mean Platelet Vol. 11.6 fl (6.2-12.0); Monocyte# 0.78 X10^3/uL; Monocyte% 7.7 % (0-10); NRBC Flagged by Analyzer 0 % (0-5); Neutrophil # 7.78 X10^3/uL (2.7-7.7); Neutrophil % 76.8 % (47-70); Platelet Count 248 K/mm3 (150-450); RBC Distribution Width CV 13.8 % (11.6-14.6); RBC Distribution Width SD 46.4 fl (35.1-43.9); Red Blood Count 4.01 M/mm3 (4.2-5.4); White Blood Count 10.1 K/mm3 (4.4-11.0)
[2022-08-06 12:06] LABS: ALB/GLOB Ratio 0.9 RATIO (0.9-2.4); AST(SGOT) 24 U/L (15-37); Alanine Aminotransfer ALT/SGPT 54 U/L (13-56); Albumin, Serum 3.4 g/dL (3.2-5.0); Alkaline Phosphatase 91 U/L (45-117); Anion Gap 6 (5-15); BUN 19 mg/dL (7-18); BUN/Creat Ratio 24.1 RATIO (10-20); Calcium,Total 10.4 mg/dL (8.5-10.1); Chloride 106 mmol/L (98-107); Creatinine, Serum 0.79 mg/dL (0.55-1.02); EST Glomerular Filtration Rate 75 mL/min (>60); Est Glom Filt Rate - Afr Amer 91 mL/min (>60); Ferritin 39 ng/mL (8-252); Globulin 3.9 g/dL (2.2-4.2); Glucose 74 mg/dL (74-106); Iron 47 ug/dL (50-170); Iron Binding Capacity,Total 375 ug/dL (250-450); LDH 210 U/L (84-246); PERCENT IRON SATURATION 12.5 % (15.0-55.0); Potassium 3.8 mmol/L (3.5-5.1); Protein, Total 7.3 g/dL (6.4-8.2); Sodium Level 140 mmol/L (136-145)
[2022-08-06 12:16] LABS: Erythrocyte Sedimentation Rate 30 mm/hr (0-30)
[2022-08-09 08:07] LABS: Endomysial Antibody IgA Negative (Negative)
[2022-08-09 10:08] LABS: Immunoglobulin A 151 mg/dL (64-422); t-Transglutaminase IgA <2 U/mL (0-3)
[2022-08-11 14:10] LABS: Albumin 3.4 g/dL (2.9-4.4); Alpha-1-Globulins 0.4 g/dL (0.0-0.4); Alpha-2-Globulins 1.2 g/dL (0.4-1.0); Gamma Globulin 0.5 g/dL (0.4-1.8); Immunoglobulin A 153 mg/dL (64-422); Immunoglobulin G 535 mg/dL (586-1602); PROEL- TOTAL PROTEIN 6.6 g/dL (6.0-8.5)
[2022-08-11 16:18] LABS: Immunoglobulin E 454 IU/mL (6-495); Immunoglobulin M 17 mg/dL (26-217)
== END | disposition home or self-care (01) ==
PROVIDERS: Visit Provider Nurse Practitioner Adult Health
DX: M06.9 Rheumatoid arthritis, unspecified (principal); D64.9 Anemia, unspecified
CPT/HCPCS: 36415; 80053; 82728; 82784; 82785; 83516; 83540; 83550; 83615; 84165; 85025; 85652; 86140; 86255; 86334

== ENCOUNTER 2022-08-24 11:10 | Day surgery (SDC) | payer MEDICARE, SELFPAY ==
[2022-08-24 11:51] VITALS: BP 127/55; PULSE 79; RESP 18; TEMP 36.7; O2SAT 96; BMI 27.8
[2022-08-24] MEDS: Lactated Ringers 1,000 ML 15 ML IV (11:57)
--- NOTE | 2022-08-24 12:13 | PCM.HP.BLA ---
History and Physical Date of Admission: 08/24/22 6 F who presents to the office today to establish with GI for iron deficiency anemia, possibly caused by a GI bleed. Most recent hospitalization was in June 2022, hemoglobin as low as 6, received 2 units of blood.? Hemoglobin was back up to 12 at the end of June 2022.? She gets hemoglobin checked weekly, yesterday it was 11.6.? She is on ferrous gluconate and vitamin C.? She is on aspirin 81 mg a day and clopidogrel; she has stents for CAD and peripheral arterial disease. Her most recent EGD was in November 2021, she reports they did not find a GI bleed.? Her most recent colonoscopy was July 2021, also no GI bleed found. Denies nausea, vomiting, hematemesis, heartburn, reflux, dysphagia, abdominal pain, diarrhea, constipation, melena, hematochezia.? She feels well currently; she reports fatigue, dizziness and grouchiness when hemoglobin drops. Her mother was diagnosed with and from colon cancer in her 70s. Past medical history includes asthma, COPD, heart attack, stroke, hypertension, rheumatoid arthritis, peripheral arterial disease, carotid stenosis ROS Const Constitutional: Positive for fatigue and headache(s) ENT ENT: Positive for headache(s); No difficulty swallowing Gastro GI: Positive for abdominal pain, bloating, constipation, excessive flatus, Blood in stool and vomiting; No belching, change in bowel habits, change in stool character, coffee ground emesis, cramping, diarrhea, heartburn, difficulty swallowing, feeling full early, incontinent of stools, Vomiting blood/hematemesis, loose stools, Black,tarry stools, nausea/dyspepsia, pain with swallowing or other Musc Musculoskeletal: Positive for joint pain, back pain, muscle cramps, Arthritis and leg pain at night Skin Skin: No yellowing of the eye or itchy eyes Neuro Neurology: Positive for headache(s) Psych Psychiatric: No anxiety and No depression Endo Endocrine: Positive for fatigue Aller/Imm Allergy/Immunologic: No itchy eyes Topher/Lymp Hematologic/Lymphatic: Positive for easy bruising; No easy bleeding Exam Const General: cooperative, healthy appearing and comfortable Nutritional Appearance: overweight Orientation: alert, awake and oriented x3 HENMT Head: normal to inspection Eyes Conjunctivae: conjunctivae normal Sclera: sclerae normal Resp Effort & Inspection: normal respiratory effort GI Inspection: normal to inspection Palpation: soft, no hepatosplenomegaly, no masses and nontender General: bladder normal to palpation Bimanual Exam- Vagina & Uterus: bladder normal to palpation Skin General: no rashes or lesions noted Neuro General: gait normal Psych Mood: euthymic mood Quality Reporting Tobacco Screening ([facility]) Smoking Status: Former smoker Assessment and Plan Assessment and Plan (1) Anemia: ?Status:?Chronic ?Qualifiers: ?Anemia type:?other cause ?Plan: Unknown etiology for her iron deficiency anemia Labs today EGD, colonoscopy and capsule endoscopy 08/24/22; f/u in office 2 wks later to discuss biopsy results ? ? ? Orders: Orders Comprehensive Metabolic Profil Today D64.9 - Anemia, unspecified ? CRP Today D64.9 - Anemia, unspecified ? CBC W/Diff, Automated Today D64.9 - Anemia, unspecified, M06.9 - Rheumatoid arthritis, unspecified ? Erythrocyte Sed Rate Today D64.9 - Anemia, unspecified ? Celiac Disease Profile Today D64.9 - Anemia, unspecified ? Ferritin Today D64.9 - Anemia, unspecified ? Iron+Iron Binding Capacity Today D64.9 - Anemia, unspecified ? LDH Today D64.9 - Anemia, unspecified ? Immunoglobulins G/A/M/E Today D64.9 - Anemia, unspecified ? NEMO + Protein Elect, Serum Today D64.9 - Anemia, unspecified ? Miscellaneous Lab Procedure Today D64.9 - Anemia, unspecified ? Medications: Changed From pantoprazole 40 mg? PO DAILY ? ? To pantoprazole 40 mg? PO QAM 90 tabs 3RF ? ? Discontinued prednisone ?? Discontinued Reason:? Pt no longer taking ?? PO ? ? I have examined the patient and the H&P has been reviewed. There are no clinical changes since date of exam.
--- NOTE | 2022-08-24 12:30 | IMM_PTH ---
PATIENT: EMILY PATEL LOC: EN U#:[id number] AGE/SX: 76/F ROOM: RE08/24/[address]: Dr. Sven Saenz DO : 1945 BED: DIS: 08/24/2022 SPEC #: [id number] RECD: 08/25/22 09:48 STATUS: KASANDRA REConcepcion #: [id number] TULIO: 08/24/22 12:[address]: Sven Saenz DEPT: IMMUNOHISTOCHEMISTRY RECD BY: Arti Stanton ENTERED: 08/25/22 09:49 SP TYPE: IMMUNO OTHR DR: Dr. Michel Burdick MD Tissues: A - Stomach, NOS Procedures: H Pylori (initial) PHYSICIAN & INSTITUTION [place] [id number] SPECIMEN INFORMATION: Tissue Source: A ? Antrum biopsy Clinical Info: Anemia Specimen Number: [id number] CPT code: 66636 METHODOLOGY: Deparaffinized sections of prefer/formalin-fixed tissue or PAP/DQ stained slides are incubated with monoclonal/polyclonal antibodies/oligonucleotide probes. Localization is made via biotin free immunoperoxidase method. Appropriate controls are performed and reacted as expected. Results on target cell population are indicated in the following table: RESULTS: ANTIBODY / CLONE RESULT Block A H Pylori (polyclonal) negative These tests were developed and their performance characteristics determined by [facility]. They may not have been cleared or approved by the U.S. Food and Drug Administration. The FDA has determined that such clearance or approval is not necessary. The above immunohistochemical/dualISH markers are ordered and reviewed by the Pathologist. INTERPRETATION: A. Antrum, biopsy: Negative for Helicobacter pylori organisms. SJ:franca 08/26/2022
--- NOTE | 2022-08-24 12:30 | EGD_PTH ---
PATIENT: EMILY PATEL LOC: EN U#:[id number] AGE/SX: 76/F ROOM: RE08/24/[address]: Dr. Sven Saenz DO : 1945 BED: DIS: 08/24/2022 SPEC #: [id number] RECD: 08/24/22 15:45 STATUS: KASANDRA REConcepcion #: [id number] TULIO: 08/24/22 12:[address]: Sven Saenz DEPT: SURGICAL PATHOLOGY RECD BY: Alida Laws ENTERED: 08/25/22 09:50 SP TYPE: EGD BIOPSY [facility] DR: Dr. Michel Burdick MD Tissues: A - Gastric mucous membrane B - Cecum, NOS C - Transverse colon D - COLON BIOPSY E - Descending colon F - Sigmoid colon biopsy Procedures: Surgery Specimen Level IV HEADER OPERATION: Colonoscopy with polypectomies and biopsies, EGD ([facility]) PRE-OP DIAGNOSIS: Anemia TISSUE SUBMITTED: A - Antrum biopsy for H. pylori and path, B - Cecum polyp, C - Transverse colon polyp biopsy, D - Splenic flexure polypectomy and polyp biopsy, E - Descending colon polyps, F - Sigmoid polyp MICROSCOPIC DIAGNOSIS A. Antrum, biopsy: Mild gastritis. See microscopic description and comment. B. Cecum polyp, biopsy: Tubular adenoma. C. Transverse colon polyp, biopsy: Tubular adenoma. D. Splenic flexure polyp, biopsy: Fragments of tubular adenoma. E. Descending colon polyps, biopsy: Fragments of tubular adenoma. G. Sigmoid polyp, biopsy: Fragments of tubular adenoma. SJ:rg 08/26/2022 COMMENT A. The results of immunohistochemistry for Helicobacter pylori will be reported separately ([id number]). MICROSCOPIC DESCRIPTION Slides are reviewed. A. The specimen shows fragments of gastric mucosa with chronic inflammatory cell infiltrates in the lamina propria consisting of lymphocytes and plasma cells, consistent with mild chronic gastritis. GROSS DESCRIPTION A - Received in fixative is one container labeled with the patient's name and designated antrum biopsy. The specimen consists of two irregular fragments of light orozco soft tissue that in aggregate measure 0.6 x 0.3 x 0.1 cm. The specimen is totally submitted in one cassette. B - Received in fixative is one container labeled with the patient's name and designated cecum polyp. The specimen consists of one irregular fragment of light orozco soft tissue that measures 0.3 x 0.3 x 0.1 cm. The specimen is totally submitted in one cassette. C - Received in fixative is one container labeled with the patient's name and designated transverse colon polyp biopsy. The specimen consists of two irregular fragments of light orozco soft tissue that in aggregate measure 0.6 x 0.3 x 0.1 cm. The specimen is totally submitted in one cassette. D - Received in fixative is one container labeled with the patient's name and designated splenic flexure polyp biopsy. The specimen consists of multiple irregular fragments of light orozco soft tissue that in aggregate measure 1.5 x 0.5 x 0.1 cm. The specimen is totally submitted in one cassette. E - Received in fixative is one container labeled with the patient's name and designated descending colon polyps. The specimen consists of multiple irregular fragments of light orozco soft tissue that in aggregate measure 1.0 x 0.5 x 0.1 cm. The specimen is totally submitted in one cassette. F - Received in fixative is one container labeled with the patient's name and designated sigmoid polyp. The specimen consists of two irregular fragments of light orozco soft tissue that in aggregate measure 0.6 x 0.2 x 0.1 cm. The specimen is totally submitted in one cassette. / SJ:rg 08/25/2022 TC:1 CPT: 51372 x6
[2022-08-24 13:56] VITALS: BP 127/55; BP 153/98; PULSE 100; RESP 16; TEMP 37.2; O2SAT 99
--- NOTE | 2022-08-24 13:57 | OP.CCLET_ITS ---
08/24/2022 Michel Burdick Md Re : Upper GI endoscopy procedure for Abbie Porter Dear Dr. Burdick This procedure was performed on Wednesday, August 24, 2022. My impressions and recommendations are as follows: Impressions : - Z-line irregular, 38 cm from the incisors. - Gastritis. Biopsied. - Normal second portion of the duodenum. Recommendations : - Discharge patient to home. - Resume previous diet. - Continue present medications. - Await pathology results. My findings are described in the full procedure note, which is enclosed. If I can be of further assistance, please feel free to contact me at . Sincerely, Sven Saenz, 08/24/2022 1:56:56 PM This report has been signed electronically.
--- NOTE | 2022-08-24 13:57 | OP.EGD_ITS ---
Patient Name: Abbie Porter Procedure Date: 08/24/2022 12:45 PM Date of : 1945 Age: 76 Procedure: Upper GI endoscopy Indications: Iron deficiency anemia Providers: Sven Saenz DO Referring MD: Sven Saenz DO Medicines: Monitored Anesthesia Care Patient Profile: This is a 76 year old female. Refer to note in patient chart for documentation of history and physical. Patient has symptoms of chronic dyspepsia and chronic heartburn. Complications: No immediate complications. Procedure: Pre-Anesthesia Assessment: - Prior to the procedure, a History and Physical was performed, and patient medications and allergies were reviewed. The patient is competent. The risks and benefits of the procedure and the sedation options and risks were discussed with the patient. All questions were answered and informed consent was obtained. Patient identification and proposed procedure were verified by the physician in the pre-procedure area. Mental Status Examination: alert and oriented. Airway Examination: normal oropharyngeal airway and neck mobility. Respiratory Examination: clear to auscultation. CV Examination: normal. Prophylactic Antibiotics: The patient does not require prophylactic antibiotics. Prior Anticoagulants: The patient has taken no previous anticoagulant or antiplatelet agents. ASA Grade Assessment: II - A patient with mild systemic disease. After reviewing the risks and benefits, the patient was deemed in satisfactory condition to undergo the procedure. The anesthesia plan was to use monitored anesthesia care (MAC). Immediately prior to administration of medications, the patient was re-assessed for adequacy to receive sedatives. The heart rate, respiratory rate, oxygen saturations, blood pressure, adequacy of pulmonary ventilation, and response to care were monitored throughout the procedure. The physical status of the patient was re-assessed after the procedure. After obtaining informed consent, the endoscope was passed under direct vision. Throughout the procedure, the patient's blood pressure, pulse, and oxygen saturations were monitored continuously. The gastroscope was introduced through the mouth, and advanced to the second part of duodenum. The upper GI endoscopy was accomplished without difficulty. The patient tolerated the procedure well. Scope In: 1:00:01 PM Scope Out: 1:06:31 PM Total Procedure Duration Time 0 hours 6 minutes 30 seconds Findings: The Z-line was irregular and was found 38 cm from the incisors. Estimated blood loss: none. Patchy mild inflammation characterized by erythema was found in the gastric body. Biopsies were taken with a cold forceps for histology. Verification of patient identification for the specimen was done. Estimated blood loss was minimal. The second portion of the duodenum was normal. Video capsule endoscopy was endoscopically placed in the duodenum. Impression: - Z-line irregular, 38 cm from the incisors. - Gastritis. Biopsied. - Normal second portion of the duodenum. Recommendation: - Discharge patient to home. - Resume previous diet. - Continue present medications. - Await pathology results. Procedure Code(s): --- Professional --- 47736, Esophagogastroduodenoscopy, flexible, transoral; with biopsy, single or multiple CPT copyright 2017 [employer]. All rights reserved. The codes documented in this report are preliminary and upon supply requirements officer review may be revised to meet current compliance requirements. Sven Saenz DO 08/24/2022 1:56:56 PM This report has been signed electronically. Number of Addenda: 0 Note Initiated On: 08/24/2022 12:45 PM
[2022-08-24 14:00] VITALS: BP 127/55; BP 146/102; PULSE 97; RESP 18; O2SAT 99
--- NOTE | 2022-08-24 14:04 | OP.COLON_ITS ---
Patient Name: Abbie Porter Procedure Date: 08/24/2022 1:06 PM Date of : 1945 Age: 76 Procedure: Colonoscopy Indications: Iron deficiency anemia Providers: Sven Saenz DO Referring MD: Sven Saenz DO Medicines: Monitored Anesthesia Care Patient Profile: This is a 76 year old female. Refer to note in patient chart for documentation of history and physical. Patient has symptoms of chronic dyspepsia and chronic heartburn. Last Colonoscopy: 1 year ago. Complications: No immediate complications. Procedure: Pre-Anesthesia Assessment: - Prior to the procedure, a History and Physical was performed, and patient medications and allergies were reviewed. The patient is competent. The risks and benefits of the procedure and the sedation options and risks were discussed with the patient. All questions were answered and informed consent was obtained. Patient identification and proposed procedure were verified by the physician in the pre-procedure area. Mental Status Examination: alert and oriented. Airway Examination: normal oropharyngeal airway and neck mobility. Respiratory Examination: clear to auscultation. CV Examination: normal. Prophylactic Antibiotics: The patient does not require prophylactic antibiotics. Prior Anticoagulants: The patient has taken no previous anticoagulant or antiplatelet agents. ASA Grade Assessment: II - A patient with mild systemic disease. After reviewing the risks and benefits, the patient was deemed in satisfactory condition to undergo the procedure. The anesthesia plan was to use monitored anesthesia care (MAC). Immediately prior to administration of medications, the patient was re-assessed for adequacy to receive sedatives. The heart rate, respiratory rate, oxygen saturations, blood pressure, adequacy of pulmonary ventilation, and response to care were monitored throughout the procedure. The physical status of the patient was re-assessed after the procedure. After I obtained informed consent, the scope was passed under direct vision. Throughout the procedure, the patient's blood pressure, pulse, and oxygen saturations were monitored continuously. The colonoscope was introduced through the anus and advanced to the ileocecal valve. The colonoscopy was performed without difficulty. The patient tolerated the procedure well. The quality of the bowel preparation was good. Scope In: 1:10:55 PM Scope Withdrawal Time 0 hours 22 minutes 34 seconds Scope Out: 1:49:31 PM Total Procedure Duration Time 0 hours 38 minutes 36 seconds Findings: The perianal and digital rectal examinations were normal. Eight sessile polyps were found in the sigmoid colon, descending colon, splenic flexure, transverse colon and cecum. The polyps were 1 to 2 mm in size. These polyps were removed with a hot snare. Resection and retrieval were complete. Verification of patient identification for the specimen was done. Two small localized angiodysplastic lesions with bleeding were found in the sigmoid colon. Coagulation for hemostasis using heater probe was successful. Impression: - Eight 1 to 2 mm polyps in the sigmoid colon, in the descending colon, at the splenic flexure, in the transverse colon and in the cecum, removed with a hot snare. Resected and retrieved. - Two bleeding colonic angiodysplastic lesions. Treated with a heater probe. Recommendation: - Discharge patient to home. - Resume previous diet. - Continue present medications. - Await pathology results. - Repeat colonoscopy in 1 year for surveillance. Procedure Code(s): --- Professional --- 90261, 59, Colonoscopy, flexible; with control of bleeding, any method 16968, Colonoscopy, flexible; with removal of tumor(s), polyp(s), or other lesion(s) by snare technique CPT copyright 2017 [employer]. All rights reserved. The codes documented in this report are preliminary and upon clinical coder review may be revised to meet current compliance requirements. Sven Saenz DO 08/24/2022 2:03:46 PM This report has been signed electronically. Number of Addenda: 0 Note Initiated On: 08/24/2022 1:06 PM
--- NOTE | 2022-08-24 14:04 | OP.CCLET_ITS ---
08/24/2022 Michel Burdick Md Re : Colonoscopy procedure for Abbie Porter Dear Dr. Brudick This procedure was performed on Wednesday, August 24, 2022. My impressions and recommendations are as follows: Impressions : - Eight 1 to 2 mm polyps in the sigmoid colon, in the descending colon, at the splenic flexure, in the transverse colon and in the cecum, removed with a hot snare. Resected and retrieved. - Two bleeding colonic angiodysplastic lesions. Treated with a heater probe. Recommendations : - Discharge patient to home. - Resume previous diet. - Continue present medications. - Await pathology results. - Repeat colonoscopy in 1 year for surveillance. My findings are described in the full procedure note, which is enclosed. If I can be of further assistance, please feel free to contact me at . Sincerely, Sven Saenz, 08/24/2022 2:03:46 PM This report has been signed electronically.
[2022-08-24 14:05] VITALS: BP 127/55; BP 146/104; PULSE 96; RESP 16; O2SAT 99
[2022-08-24 14:13] VITALS: BP 127/55; BP 168/96; PULSE 97; RESP 18; TEMP 36.9; O2SAT 100
[2022-08-24 15:05] VITALS: BP 127/55
== END 2022-08-24 15:05 | disposition home or self-care (01) ==
LOC: EN 11:13 → AC 11:15
PROVIDERS: Referring Provider Internal Medicine Gastroenterology; Visit Provider Internal Medicine Gastroenterology
PROC: 0DJD8ZZ Inspection of Lower Intestinal Tract, Via Natural or Artificial Opening Endoscopic (ICD-10-PCS; CPT 45378; principal; 2022-08-24 12:25)
DX: D12.0 Benign neoplasm of cecum (principal); J44.9 Chronic obstructive pulmonary disease, unspecified; I50.9 Heart failure, unspecified; I11.0 Hypertensive heart disease with heart failure; K31.89 Other diseases of stomach and duodenum; D12.4 Benign neoplasm of descending colon; D12.5 Benign neoplasm of sigmoid colon; D12.3 Benign neoplasm of transverse colon; D50.9 Iron deficiency anemia, unspecified; K29.70 Gastritis, unspecified, without bleeding; K21.9 Gastro-esophageal reflux disease without esophagitis; I25.2 Old myocardial infarction; Z87.891 Personal history of nicotine dependence; Z95.5 Presence of coronary angioplasty implant and graft; Z79.82 Long term (current) use of aspirin; Z79.899 Other long term (current) drug therapy; Z86.73 Personal history of transient ischemic attack (TIA), and cerebral infarction without residual deficits
CPT/HCPCS: 45385; 45382; 43239; 88305; 88342; J7120

== ENCOUNTER → 2022-09-10 | Outpatient (CLI) | payer MEDICARE, SELFPAY ==
[2022-09-12 14:03] LABS: Giardia Lamblia, Stool EIA Negative (Negative)
== END | disposition home or self-care (01) ==
LOC: LABSPEC 11:49
PROVIDERS: Referring Provider Nurse Practitioner Adult Health; Visit Provider Nurse Practitioner Adult Health
DX: K58.9 Irritable bowel syndrome, unspecified (principal); K52.9 Noninfective gastroenteritis and colitis, unspecified
CPT/HCPCS: 87329